=== PATIENT | female | born 2000 | race American Indian/Alaskan Native ===

== ENCOUNTER 2020-09-21 22:50 | Emergency (ER) | payer SELFPAY ==
[2020-09-21 23:23] VITALS: BP 92/62
[2020-09-21 23:37] LABS: HCG Qualitative,Urine Positive (Negative)
[2020-09-21 23:38] LABS: Bacteria,Urine 1+ /HPF (Negative); Bilirubin,Urine NEG (Negative); Blood,Urine NEG (Negative); Color,Urine Yellow (Yellow); Mucus,Urine FEW /HPF; Urobilinogen,Urine < 2.0 mg/dL (<2.0)
[2020-09-22] MEDS ORDERED: cephALEXin 500 MG CAP PO ONE (00:10)
[2020-09-22] MEDS ORDERED: ACETAMINOPHEN 500 MG TAB PO ONE (00:10)
[2020-09-22 00:39] LABS: Basophils # (Auto) 0.1 K/mm3 (0.0-0.1); Basophils % (Auto) 0.5 % (0.0-1.8); Eosinophils # (Auto) 0.3 K/mm3 (0.0-0.4); Eosinophils % (Auto) 3.1 % (0.0-4.3); Hemoglobin 13.3 gm/dl (10.1-14.3); Lymphocytes # (Auto) 2.6 K/mm3 (1.2-5.4); Mean Corpuscular HGB Conc 34 % (30-34); Mean Corpuscular Volume 90 fl (79-97); Monocytes % (Auto) 8.7 % (0.0-7.3); Platelet Count 202 K/mm3 (140-440); Red Blood Count 4.31 M/mm3 (3.65-5.03); Red Cell Distribution Width 13.2 % (13.2-15.2)
[2020-09-22 00:47] LABS: Blood Urea Nitrogen 8 mg/dL (7-17); Calcium 8.9 mg/dL (8.4-10.2); Hemolysis Index 5
[2020-09-22 00:50] LABS: Alanine Aminotransferase 11 units/L (7-56); Albumin 4.2 g/dL (3.9-5)
[2020-09-22 00:52] LABS: BUN/Creatinine Ratio 13
[2020-09-22 00:56] LABS: Bilirubin,Direct < 0.2 mg/dL (0-0.2)
--- NOTE | 2020-09-22 02:50 | Emergency Department Report ---
ED Female HPI - General Chief complaint: Vaginal Bleeding Stated complaint: 9WKS PREG/BLEEDING Source: patient Mode of arrival: Ambulatory Limitations: No Limitations - History of Present Illness Initial comments: Patient is a A0 20 yo AA female with a h/o asthma and who is approximately 9 weeks gestation presents the ED with c/o acute onset persistent suprapic pain with vaginal spotting, dysuria, and urinary urgency and frequency and hematuria for the last 6 hours. Patient states that the symptoms got worse in the last 2 hours. Patient denies fever, chills, nausea, vomiting, diarrhea, headache, dizziness, vision changes, diarrhea, low back pain or neck pain and vision changes. MD Complaint: vaginal bleeding, pelvic pain -: Sudden, hour(s) (6) Location: suprapubic, other (Vaginal) Radiation: suprapubic Severity: severe Severity scale (0 -10): 7 Quality: cramping, sharp Consistency: constant Improves with: none Worsens with: none Are you Now?: Yes (9 weeks gestation) Last Menstrual Period: 07/18/20 EDC: 04/24/21 Associated Symptoms: denies other symptoms, vaginal bleeding, abdominal pain, hematuria. denies: vaginal discharge, nausea/vomiting, fever/chills, headaches, loss of appetite, dysuria, rash, shortness of breath, syncope, other - Related Data Sexually active: Yes : 1 Para: 0 A: 0 Previous Rx's Medication Instructions Recorded Last Taken Type Acetaminophen [Tylenol] 500 mg PO Q6HR PRN #30 tablet 09/22/20 Unknown Rx cephALEXin [Keflex] 500 mg PO Q8HR #30 capsule 09/22/20 Unknown Rx Allergies Allergy/AdvReac Type Severity Reaction Status Date / Time shellfish derived Allergy Hives Verified 09/21/20 23:23 ED Review of Systems ROS: Stated complaint: 9WKS PREG/BLEEDING Other details as noted in HPI Constitutional: denies: chills, fever Eyes: denies: eye pain, eye discharge, vision change ENT: denies: ear pain, throat pain Respiratory: denies: cough, shortness of breath, wheezing Cardiovascular: denies: chest pain, palpitations Endocrine: no symptoms reported Gastrointestinal: abdominal pain (suprapubic). denies: nausea, vomiting, diarrhea, constipation, hematemesis, hematochezia Genitourinary: hematuria, abnormal menses (vaginal spoting). denies: urgency, dysuria, frequency, discharge Musculoskeletal: denies: back pain, joint swelling, arthralgia Skin: denies: rash, lesions Neurological: denies: headache, weakness, paresthesias Psychiatric: denies: anxiety, depression Hematological/Lymphatic: denies: easy bleeding, easy bruising ED Past Medical Hx - Past Medical History Previous Medical History?: Yes Hx Asthma: Yes - Social History Smoking Status: Never Smoker - Medications Home Medications: Home Medications Medication Instructions Recorded Confirmed Last Taken Type Acetaminophen [Tylenol] 500 mg PO Q6HR PRN #30 tablet 09/22/20 Unknown Rx cephALEXin [Keflex] 500 mg PO Q8HR #30 capsule 09/22/20 Unknown Rx ED Physical Exam - General Limitations: No Limitations General appearance: alert, in no apparent distress - Head Head exam: Present: atraumatic, normocephalic, normal inspection - Eye Eye exam: Present: normal appearance, PERRL, EOMI Pupils: Present: normal accommodation - ENT ENT exam: Present: normal exam, normal orophraynx, mucous membranes moist, TM's normal bilaterally, normal external ear exam - Neck Neck exam: Present: normal inspection, full ROM - Respiratory Respiratory exam: Present: normal lung sounds bilaterally. Absent: respiratory distress, wheezes, rales, rhonchi, chest wall tenderness, accessory muscle use, decreased breath sounds - Cardiovascular Cardiovascular Exam: Present: regular rate, normal rhythm, normal heart sounds. Absent: systolic murmur, diastolic murmur, rubs, gallop - GI/Abdominal GI/Abdominal exam: Present: soft, tenderness (Palpable suprapubic tenderness), normal bowel sounds. Absent: guarding, rebound, hyperactive bowel sounds, hypoactive bowel sounds, mass, bruit - Bi-manual exam: Present: other (Pelvic exam deferred at this time) - Extremities Exam Extremities exam: Present: normal inspection, full ROM, normal capillary refill - Back Exam Back exam: Present: normal inspection, full ROM. Absent: tenderness, CVA tenderness (R), CVA tenderness (L), muscle spasm, paraspinal tenderness, vertebral tenderness - Neurological Exam Neurological exam: Present: alert, oriented X3, CN II-XII intact, normal gait, reflexes normal - Psychiatric Psychiatric exam: Present: normal affect, normal mood - Skin Skin exam: Present: warm, dry, intact, normal color. Absent: rash ED Course Vital Signs 09/21/20 23:21 Temperature 98.7 F Pulse Rate 87 Respiratory 16 Rate Blood Pressure 92/62 O2 Sat by Pulse 98 Oximetry ED Medical Decision Making - Lab Data Result diagrams: 09/22/20 00:15 09/22/20 00:15 - Radiology Data Radiology results: report reviewed, image reviewed The transvaginal ultrasound shows a mckeon living IUP with estimated sono graphic age of 10 weeks and 1 day and heart rate of 166 bpm. Ovaries are not visualized. - Medical Decision Making This is a A0 20 yo AA female with a h/o asthma and who is approximately 9 weeks gestation presents the ED with c/o acute onset persistent suprapic pain with vaginal spotting, dysuria, and urinary urgency and frequency and hematuria for the last 6 hours. Patient states that the symptoms got worse in the last 2 hours. In the ED, patient is alert and oriented x3 and is not in any distress. Patient was treated for pain, and lab test results were reviewed and showed acute leukocytosis of 11,100, hCG quant of 114,112 and significant urinary tract infection in the urinalysis. Patient was treated for pain with Tylenol. Patient was also given initial oral antibiotics Keflex 1 g p.o. x1 for UTI. Transvaginal ultrasound showed single IUP with estimated sonographic age of 10 weeks and 1 day, and with heart rate of 166 bpm, and ovaries were not visualized. On reevaluation, patient's pain is well controlled medications. Patient was therefore discharged home on pain medication and oral antibiotic prescriptions and was advised to maintain a complete pelvic rest, with no strenuous or physical activities and advised to follow-up with [facility] physician on-call Dr. Nina Luong for further evaluation in 3 to 5 days. Patient is advised return to the ED immediately if symptoms get worse. - Differential Diagnosis Ectopic preg; Threatened miscarriage; UTI; Ovarian cyst; Subchorionic bleed Critical care attestation.: If time is entered above; I have spent that time in minutes in the direct care of this critically ill patient, excluding procedure time. ED Disposition Clinical Impression: Threatened miscarriage in early , Acute urinary tract infection, Abdominal pain during in first trimester, Vaginal bleeding in patient after first trimester Disposition: DC-01 TO HOME OR SELFCARE Is pt being admited?: No Does the pt Need Aspirin: No Condition: Stable Instructions: Threatened Miscarriage, [id number], Urinary Tract Infection, Adult, [id number], Vaginal Bleeding During , First Trimester, [id number], Abdominal Pain During , [id number] Additional Instructions: Your lab test results showed significant urinary tract infection in urinalysis. Transvaginal ultrasound shows intrauterine of approximately 10 weeks and 1 day with a heart rate of 166 bpm. Therefore maintain a complete pelvic rest, avoid heavy lifting or strenuous physical exercises or sexual activity, take medications with food, drink plenty of fluids and follow-up with the [facility] physician in 3 to 5 days for reevaluation or return to the ED i mmediately if symptoms get worse. Prescriptions: Acetaminophen [Tylenol] 500 mg PO Q6HR PRN #30 tablet PRN Reason: Abdominal pain cephALEXin [Keflex] 500 mg PO Q8HR #30 capsule Referrals: SRAVANTHI LUONG MD [Staff Physician] - 3-5 Days Time of Disposition: 02:55 Print Language: CROATIAN
--- NOTE | 2020-09-22 08:04 | Ultrasound Report ---
US OB <= 14 weeks fetus INDICATION / CLINICAL INFORMATION: Vaginal bleeding. TECHNIQUE: Transabdominal. COMPARISON: None available. FINDINGS: UTERUS: Appears within normal limits. GESTATIONAL SAC: Well-defined oval shape and intrauterine in location. YOLK SAC: No significant abnormality. EMBRYO/FETUS: - Medical [place] Length = 3.3 cm . - Heart Rate, beats per minute (if present) = 166 beats per minute ADNEXA: Ovaries are not visualized. FREE FLUID: None. ADDITIONAL FINDINGS: Cervix measures 3.1 cm.. IMPRESSION: 1. Single, living intrauterine with estimated sonographic age of 10 weeks 1 days. Signer Name: Dino Block MD Signed: 09/22/2020 2:09 AM Workstation Name: [id number]
== END 2020-09-22 03:06 | disposition home or self-care (01) ==
LOC: ED 22:50
DX: O20.0 Threatened abortion (principal); O23.41 Unspecified infection of urinary tract in pregnancy, first trimester; O26.891 Other specified pregnancy related conditions, first trimester; O99.511 Diseases of the respiratory system complicating pregnancy, first trimester; J45.909 Unspecified asthma, uncomplicated; Z3A.09 9 weeks gestation of pregnancy; Z79.899 Other long term (current) drug therapy; Z91.013 Allergy to seafood
CPT/HCPCS: 36415; 76801; 80048; 80076; 81001; 81025; 84702; 85025; 86900; 86901